=== PATIENT | female | born 1995 | race Caucasian/White ===

== ENCOUNTER 2016-12-11 11:39 | Emergency (ER) | payer OTHER ==
[2016-12-11 12:01] VITALS: BP 119/84; PULSE 92; RESP 14; TEMP 98.4; O2SAT 93
--- NOTE | 2016-12-11 12:50 | EDPHY ---
H & P Stated Complaint: Right knee pain after fall rollerskating. Time Seen by Provider: 12/11/16 12:50 HPI/ROS: CHIEF COMPLAINT: Right knee injury HISTORY OF PRESENT ILLNESS: The patient presents to the ED with right knee pain and swelling following a fall last night. The patient fell onto her patella. She has had moderate pain with movement. She denies any focal numbness or weakness. The patient has a small bruise to the dorsum of her left wrist with no significant tenderness to palpation or decreased range of motion. The patient denies any headache, neck pain, difficulty breathing, chest pain or other concerns. REVIEW OF SYSTEMS: A comprehensive 10 point review of systems is otherwise negative aside from elements mentioned in the history of present illness. Source: Patient - Personal History Current Tetanus/Diphtheria Vaccine: Yes Current Tetanus Diphtheria and Acellular Pertussis (TDAP): Yes - Medical/Surgical History Hx Asthma: Yes Hx Chronic Respiratory Disease: No Hx Diabetes: No Hx Cardiac Disease: No Hx Renal Disease: No Hx Cirrhosis: No Hx Alcoholism: No Hx HIV/AIDS: No Hx Splenectomy or Spleen Trauma: No Other PMH: psh: denies;. PMH denies - Social History Smoking Status: Heavy smoker - Physical Exam Exam: General Appearance: Alert, no distress Head: Atraumatic Eyes: Pupils equal, round, reactive ENT, Mouth: No hemotympanum, no oral trauma Neck: Nontender, trachea midline Respiratory: No chest wall tender, subcutaneous air, lungs clear bilaterally Cardiovascular: Regular rate and rhythm Abdomen: Abdomen is soft and nontender, pelvis stable Skin: Small area of ecchymosis over left wrist, no laceration, no abrasion Back: No midline T/L/S pain Extremities: Tenderness to palpation over right patella, decreased range of motion secondary to pain, remainder of musculoskeletal examination normal Neurological: A&Ox3, normal motor function, normal sensory exam Constitutional: Initial Vital Signs Temperature (C) 36.9 C 12/11/16 11:58 Heart Rate 92 12/11/16 11:58 Respiratory Rate 14 12/11/16 11:58 Blood Pressure 119/84 H 12/11/16 11:58 O2 Sat (%) 93 12/11/16 11:58 O2 Delivery Mode Room Air Allergies/Adverse Reactions: No Known Allergies Allergy (Unverified 01/27/15 12:02) Home Medications: Medication Instructions Recorded Buspar (*) 03/22/16 LaMICtal 03/22/16 ZYRTEC 03/22/16 Medical Decision Making - Diagnostics Imaging Results: Imaging Impressions Knee X-Ray 12/11/16 12:38 Impression: Prepatellar soft tissue swelling. Query bursitis. ED Course/Re-evaluation: The patient presents to the ED for evaluation of right knee pain following a fall yesterday. There is no evidence of an obvious fracture noted on her x-ray today. The remainder of the patient's physical examination demonstrates no significant injury. The patient will be discharged home with customary aftercare instructions. The patient is given referral to our on-call orthopedic surgeon for any unimproved symptoms. Differential Diagnosis: Differential diagnosis considered includes fracture, sprain, dislocation Departure - Departure Disposition: Home, Routine, Self-Care Clinical Impression: Knee contusion Condition: Good Instructions: Contusion in Adults (ED) Additional Instructions: 1. Take Ibuprofen or Motrin 600 mg by mouth three times a day. 2. The x-rays obtained in the emergency department today demonstrate no evidence of an obvious fracture. Sometimes fractures are not obvious on the initial set of x-rays performed in the ED. For this reason, you should have repeat x-rays performed in 7-10 days if you are having any pain exclude the possibility of an occult fracture. Referrals: Yemi Giordano MD [Medical Doctor] - As per Instructions
== END 2016-12-11 13:16 | disposition home or self-care (01) ==
DX: S80.01XA Contusion of right knee, initial encounter (principal); J45.909 Unspecified asthma, uncomplicated; F17.200 Nicotine dependence, unspecified, uncomplicated; V00.121A Fall from non-in-line roller-skates, initial encounter; Y99.8 Other external cause status; Y93.51 Activity, roller skating (inline) and skateboarding